=== PATIENT | male | born 1980 | race Caucasian/White ===

== ENCOUNTER 2019-07-19 15:58 | Emergency (ER) | payer OTHER ==
[~2019-07-19] VITALS: Ht 167.6 cm; Wt 81.7 kg
[2019-07-19] MEDS ORDERED: GABAPENTIN 100100 MG PO (17:04)
[2019-07-19 18:11] VITALS: BP 128/76
== END 2019-07-19 18:11 | disposition home or self-care (01) ==
LOC: ER 15:58
DX: M54.40 Lumbago with sciatica, unspecified side (principal)